=== PATIENT | male | born 1950 | race African-American/Black ===

== ENCOUNTER 2017-05-12 14:47 | Emergency (ER) | payer MEDICARE, MEDICAID ==
[~2017-05-12] VITALS: Ht 185.4 cm; Wt 128.0 kg
[~2017-05-12 14:47] MED LIST: ASPI-825 PO; CHOLESTEROL MED; LISI10TA7 PO
[2017-05-12 15:37] VITALS: BP 151/101
[2017-05-12] MEDS ORDERED: CARBAMIDE PEROXIDE 6.5% 15 ML OTIC SOLUTION AU ONE (16:15)
[2017-05-12] MEDS ORDERED: IBUPROFEN 600 MG TABLET PO ONE (16:15)
== END 2017-05-12 17:36 | disposition home or self-care (01) ==
LOC: EMS 14:48
DX: H61.21 Impacted cerumen, right ear (principal); E78.00 Pure hypercholesterolemia, unspecified; I10 Essential (primary) hypertension; Z86.73 Personal history of transient ischemic attack (TIA), and cerebral infarction without residual deficits
CPT/HCPCS: 69209; 99283

== ENCOUNTER 2019-04-25 15:40 | Emergency (ER) | payer MEDICARE, MEDICAID ==
[~2019-04-25] VITALS: Ht 188 cm; Wt 93.2 kg
[2019-04-25 17:15] LABS: INFLUENZA TYPE A NEGATIVE FOR TYPE A (NEGATIVE); INFLUENZA TYPE B NEGATIVE FOR TYPE B (NEGATIVE)
[2019-04-25 17:22] VITALS: BP 124/79
[2019-04-25] MEDS ORDERED: ACETAMINOPHEN 500 MG TABLET PO ONE (17:45)
== END 2019-04-25 18:48 | disposition home or self-care (01) ==
LOC: EMS 15:49
DX: J20.9 Acute bronchitis, unspecified (principal); E78.00 Pure hypercholesterolemia, unspecified; I10 Essential (primary) hypertension; M06.9 Rheumatoid arthritis, unspecified; Z86.73 Personal history of transient ischemic attack (TIA), and cerebral infarction without residual deficits; Z79.899 Other long term (current) drug therapy; Z98.2 Presence of cerebrospinal fluid drainage device
CPT/HCPCS: 87804